=== PATIENT | female | born 1995 | race Caucasian/White ===

== ENCOUNTER 2017-08-24 21:52 | Emergency (ER) | payer BC ==
[2017-08-25] MEDS: HYDROCODONE/APAP (5/325) TAB PO (02:27)
[2017-08-25] MEDS: ONDANSETRON (ODT) 4 MG TAB ODT (02:27)
== END 2017-08-25 03:20 | disposition home or self-care (01) ==
LOC: FTE 21:52
DX: R11.10 Vomiting, unspecified (principal)
CPT/HCPCS: 99284; Z7502

== ENCOUNTER 2018-02-24 22:23 | Emergency (ER) | payer BC | END 2018-02-25 01:33 | disposition home or self-care (01) | LOC: FTE 22:23 | DX: R19.7 Diarrhea, unspecified (principal) | CPT/HCPCS: 81025; 99283 ==